=== PATIENT | male | born 1980 | race African-American/Black ===

== ENCOUNTER 2022-11-09 22:08 | Emergency (ER) | payer BC, OTHER ==
[2022-11-09 22:12] VITALS: BP 148/84; PULSE 64; RESP 16; TEMP 98.3; BMI 27.3
[2022-11-09] MEDS ORDERED: LIDOCAINE VISCOUS 2% ORAL/TOP 15 ML UNIT-DOSE CUP MM ONE (22:34)
[2022-11-09] MEDS ORDERED: LIDOCAINE VISCOUS 2% ORAL/TOP 15 ML UNIT-DOSE CUP ONE (22:36)
[2022-11-09] MEDS ORDERED: KETOROLAC TROMETHAMINE 30 MG/1 ML VIAL ONE (22:58)
[2022-11-09] MEDS ORDERED: KETOROLAC TROMETHAMINE 30 MG/1 ML VIAL IM ONE (22:58)
== END 2022-11-09 23:21 | disposition home or self-care (01) ==
LOC: JERFT 22:08
PROC: 3E0233Z Introduction of Anti-inflammatory into Muscle, Percutaneous Approach (ICD-10-PCS; principal; 2022-11-09)
DX: K08.89 Other specified disorders of teeth and supporting structures (principal); R68.84 Jaw pain
CPT/HCPCS: 99284-25